=== PATIENT | female | born 1975 | race Two or more races ===

== ENCOUNTER 2019-05-30 12:03 | Inpatient (IN) | payer OTHER ==
[~2019-05-30] VITALS: Ht 162.6 cm; Wt 54.4 kg
== END 2019-07-04 13:39 | disposition home or self-care (01) | DRG 416 ==
LOC: O/R 07-03 06:56 → SURG 07-03 06:56 → CIR.AMB 07-03 07:15 → EDSTATUS 07-03 07:15 → SURG 07-03 10:45 → O/R 07-03 10:48 → SURG 07-03 14:53
PROVIDERS: ADMIT Specialist
PROC: 0FT40ZZ Resection of Gallbladder, Open Approach (ICD-10-PCS; principal; 2019-07-03 10:45)
DX: K80.11 Calculus of gallbladder with chronic cholecystitis with obstruction (principal)